=== PATIENT | male | born 1955 | race African-American/Black ===

== ENCOUNTER → 2020-05-10 | Emergency (ER) | payer MEDICAID ==
[~2020-05-10] VITALS: Ht 177.8 cm; Wt 74.8 kg
[~2020-05-10] MED LIST: IBUPROFEN600 M1 ORAL; LIDODERM700 M1 TOPIC; TYLENOL EXTRA500 MG ORAL
[2020-05-10 13:28] VITALS: BP 163/80
--- NOTE | 2020-05-10 13:28 | NUR ---
l;ow back pain x 3 days . per patient he was pushing some things now has back pain
--- NOTE | 2020-05-10 14:21 | Emergency Room Report ---
History of Present Illness General Chief Complaint: Lower Back Pain or Injury Source: Patient Present Illness HPI Disclaimer: Please note that this report is being documented using [employer] technology. This can lead to erroneous entry secondary to incorrect interpretation by the dictating instrument. HPI: 64-year-old male presents with back pain. Patient states he was working at a job site 3 weeks ago missed the last step of a ladder going down falling backwards and landing on his buttocks. Complaining of lower back pain that does not radiate. Worse with bending and twisting motion. No injury since the initial injury 3 weeks ago. Denies numbness or tingling. Denies lower extremity weakness. Denies urinary retention or fecal incontinence. Denies fever or chills. Sometimes uses a cane to help him stay upright but does not needed to ambulate. Has not taken any medication prior to arrival. PMH: Reviewed PSH: Reviewed Allergies: Reviewed Social Hx: Reviewed COVID-19 Screening Contact w/high risk pt: No Experienced COVID-19 symptoms?: No COVID-19 Testing performed SOMMELIER: No Nursing Documentation-PMH Hx Hypertension: Yes - high cholesterol Hx Diabetes: Yes Review of Systems All Other Systems: negative except mentioned in HPI Physical Exam Vital Signs Date Time Temp Pulse Resp B/P (MAP) Pulse Ox O2 Delivery O2 Flow Rate FiO2 05/10/20 13:21 98.1 70 18 163/80 (107) 98 General: Awake and alert, no acute distress HEENT: NC/AT. EOMI. Resp: Normal work of breathing Skin: Intact. No abrasions, laceration or rash over the exposed skin MSK: Normal tone and bulk. Moving all extremities. No obvious deformity. Neuro: Awake and alert. Mentating appropriately. No saddle anesthesia. No lower extremity weakness. Ambulating with steady gait Spine: No tenderness, step-off or deformity in the cervical, thoracic spine. No paraspinal tenderness. Mild midline tenderness without palpable step-off or deformity in the upper lumbar spine. No significant paraspinal tenderness. Medical Decision Making Diagnostic Impression: Primary Impression: Back pain ER Course 64-year-old male presents for evaluation of back pain after a fall 3 weeks ago. Neurologically intact. CT obtained to evaluate for fracture and none was identified. Degenerative changes noted which are appear to be chronic. The patient during discharge process was also complaining of pain in the mid back. No significant tenderness. X-ray was obtained to evaluate but no fracture or subluxation identified. He stable for outpatient follow-up. Will prescribe lidocaine patches and Tylenol and Motrin. Follow-up with PMD. Instructed to return new or worsening symptoms. He understands and agrees with the treatment plan. Other X-Ray Diagnostic Results Other X-Ray Diagnostic Results : X-Ray ordered: Thoracic spine # of Views/Limited Vs Complete: 2 View Indication: Pain EP Interpretation: Yes Interpretation: no dislocation, no soft tissue swelling, no fractures Impression: No acute disease Electronically Signed by: Electronically signed by Dr. Wes Galvez MD CT/MRI/US Diagnostic Results CT/MRI/US Diagnostic Results : Impression Procedure: CT L Spine no Contrast CT L SPINE HISTORY: Pain TECHNIQUE: One or more of the following dose reduction techniques were used: automated exposure control, adjustment of the mA and/or kV according to patient size, use of iterative reconstruction technique. One or more of the following dose reduction techniques were used: automated exposure control, adjustment of the mA and/or kV according to patient size, use of iterative reconstruction technique. Total Exam volume computed tomography dose index (CTDIvol) = 11.3 mGy and Dose Length Product (DLP) = 408.5mGY-c TECHNIQUE: Multiple, contiguous axial cuts of the lumbar spine are obtained. Sagittal and coronal reformats are available. No IV contrast given. COMPARISON: None FINDINGS: No fracture or subluxation is identified. Vertebral body heights appear maintained without compression deformity. Facet hypertrophy demonstrated. No acute fracture . Concentric disc bulge causing canal stenosis at L3-4, L4-5 and L5-S1 with bilateral neural foraminal narrowing. Sclerosis of the right greater than left sacroiliac joints. Bone mineralization is within normal limits. No prevertebral soft tissue thickening. Mild curvature to the left with otherwise normal alignment. IMPRESSION: Degenerative changes without fracture or subluxation. Dictated By: Josef Cueva M.D. Electronically Signed By:Josef Cueva M.D. Signed Date/Time05/10/20 1440 CC: Paloma Luciano M.D. Last Vital Signs Date Time Temp Pulse Resp B/P (MAP) Pulse Ox O2 Delivery O2 Flow Rate FiO2 05/10/20 13:28 98.1 18 163/80 98 05/10/20 13:21 70 Disposition: HOME, SELF-CARE Condition: Stable Scripts Acetaminophen* (TYLENOL EXTRA STRENGTH*) 500 Mg Tablet 500 MG ORAL Q8H PRN for Prn Headache/Temp > 101, #30 TAB 0 Refills Prov: Wes Galvez MD 05/10/20 Lidocaine Patch* (Lidoderm Patch*) 1 Each Adh..patch 1 PATCH TOPIC DAILY, #30 PATCH Patch(es) may remain in place for up to 12 hours in any 24-hour period. Prov: Wes Galvez MD 05/10/20 Ibuprofen* (MOTRIN*) 600 Mg Tablet 600 MG ORAL Q6H PRN for For Pain, #30 TAB 0 Refills Prov: Wes Galvez MD 05/10/20 Wes Galvez MD May 10, 2020 14:21
--- NOTE | 2020-05-10 14:41 | Diagnostic Imaging Report ---
CT L SPINE HISTORY: Pain TECHNIQUE: One or more of the following dose reduction techniques were used: automated exposure control, adjustment of the mA and/or kV according to patient size, use of iterative reconstruction technique. One or more of the following dose reduction techniques were used: automated exposure control, adjustment of the mA and/or kV according to patient size, use of iterative reconstruction technique. Total Exam volume computed tomography dose index (CTDIvol) = 11.3 mGy and Dose Length Product (DLP) = 408.5mGY-c TECHNIQUE: Multiple, contiguous axial cuts of the lumbar spine are obtained. Sagittal and coronal reformats are available. No IV contrast given. COMPARISON: None FINDINGS: No fracture or subluxation is identified. Vertebral body heights appear maintained without compression deformity. Facet hypertrophy demonstrated. No acute fracture . Concentric disc bulge causing canal stenosis at L3-4, L4-5 and L5-S1 with bilateral neural foraminal narrowing. Sclerosis of the right greater than left sacroiliac joints. Bone mineralization is within normal limits. No prevertebral soft tissue thickening. Mild curvature to the left with otherwise normal alignment. IMPRESSION: Degenerative changes without fracture or subluxation.
--- NOTE | 2020-05-10 15:00 | NUR ---
feels better no pain now waiting for all lab results
--- NOTE | 2020-05-10 16:05 | Diagnostic Imaging Report ---
FILM T SPINE, 2 views INDICATION: Injury COMPARISON: None FINDINGS: Multiple views of the thoracic spine are obtained. Vertebral body heights and disk spaces are intact with mild disc space narrowing and osteophytosis. Alignment is anatomic. The paraspinal soft tissues are within normal limits. IMPRESSION: No acute fracture or subluxation.
--- NOTE | 2020-05-10 17:28 | NUR ---
discharged home with instruction and rx follow up with pmd
[2020-05-10 17:30] VITALS: BP 163/80
== END | disposition home or self-care (01) ==
LOC: EMR 14:15
DX: M54.5 Low back pain (principal); I10 Essential (primary) hypertension; E78.00 Pure hypercholesterolemia, unspecified; E11.9 Type 2 diabetes mellitus without complications; W11.XXXA Fall on and from ladder, initial encounter; Y93.9 Activity, unspecified; Y92.9 Unspecified place or not applicable
CPT/HCPCS: 72070; 72131; Z7502; 99284